=== PATIENT | female | born 1990 | race American Indian/Alaskan Native ===

== ENCOUNTER 2019-03-07 05:54 | Inpatient (IN) | payer SELFPAY ==
[2019-03-07] MEDS ORDERED: DUONEB *Not for PRN Use IH ONE ×2 (06:11→15:09)
[2019-03-07] MEDS ORDERED: NACL 0.9% 1000 ML 1,000 ML IV ONE (06:13)
--- NOTE | 2019-03-07 06:26 | XRay Report ---
PROCEDURE: XR CHEST 1V AP TECHNIQUE: Chest radiograph single view. HISTORY: DANYELLE x 1 day COMPARISONS: None . FINDINGS: Heart: Normal. Mediastinum/Vessels: Normal. Lungs/Pleural space: Normal. Bony thorax: No acute osseous abnormality. Life support devices: None. IMPRESSION: No acute cardiopulmonary abnormality. This document is electronically signed by Subhash Lopez MD., March 07 2019 06:24:19 AM ET
--- NOTE | 2019-03-07 06:55 | Emergency Department Report ---
ED General Adult HPI - General Chief complaint: Dyspnea/Respdistress Stated complaint: DIFFICULTY IN BREATHING Time Seen by Provider: 03/07/19 06:10 Source: patient, EMS Mode of arrival: Stretcher Limitations: No Limitations - History of Present Illness Initial comments: 28-year-old female transported to this facility on CPAP by EMS for exacerbation of asthma. Patient states that she has early been admitted this month to [facility] for an asthma exacerbation. She has just finished a course of steroids. She denies chest pain pressure or tightness-like pain or swelling. She's had no recent fever or chills. She denies any significant productive sputum. She states that her asthma just flared up last night. Patient denies previous intubation. She has had several hospitalizations. She is not at her baseline steroid dependent nor on home O2. -: Gradual, hour(s) Associated Symptoms: denies other symptoms - Related Data Allergies Allergy/AdvReac Type Severity Reaction Status Date / Time No Known Allergies Allergy Unverified 03/07/19 05:59 ED Review of Systems ROS: Stated complaint: DIFFICULTY IN BREATHING Other details as noted in HPI Constitutional: denies: chills, fever Eyes: denies: eye pain, eye discharge, vision change ENT: denies: ear pain, throat pain Respiratory: shortness of breath, wheezing. denies: cough Cardiovascular: denies: chest pain, palpitations Endocrine: no symptoms reported Gastrointestinal: denies: abdominal pain, nausea, diarrhea Genitourinary: denies: urgency, dysuria, discharge Musculoskeletal: denies: back pain, joint swelling, arthralgia Skin: denies: rash, lesions Neurological: denies: headache, weakness, paresthesias Psychiatric: denies: anxiety, depression Hematological/Lymphatic: denies: easy bleeding, easy bruising ED Past Medical Hx - Past Medical History Hx Asthma: Yes - Social History Smoking Status: Never Smoker ED Physical Exam - General Limitations: Physical Limitation (patient on BiPAP) General appearance: alert, in no apparent distress, other (no respiratory distress) - Head Head exam: Present: atraumatic, normocephalic - Eye Eye exam: Present: normal appearance - ENT ENT exam: Present: mucous membranes moist - Neck Neck exam: Present: normal inspection - Respiratory Respiratory exam: Present: accessory muscle use (mildly increased work of breathing), other (slight end expiratory wheeze). Absent: respiratory distress - Cardiovascular Cardiovascular Exam: Present: regular rate, normal rhythm. Absent: systolic murmur, diastolic murmur, rubs, gallop - GI/Abdominal GI/Abdominal exam: Present: soft, normal bowel sounds. Absent: distended, tenderness, guarding, rebound, rigid - Extremities Exam Extremities exam: Present: normal inspection, normal capillary refill. Absent: calf tenderness - Back Exam Back exam: Present: normal inspection - Neurological Exam Neurological exam: Present: alert, oriented X3, CN II-XII intact. Absent: motor sensory deficit - Psychiatric Psychiatric exam: Present: normal affect, normal mood - Skin Skin exam: Present: warm, dry, intact, normal color. Absent: rash ED Course Vital Signs 03/07/19 03/07/19 03/07/19 06:05 06:25 06:26 Temperature 98.5 F Pulse Rate 107 H 100 H Pulse Rate [ 97 H Bilateral] Respiratory 19 25 H Rate Respiratory 19 Rate [Bilateral ] Blood Pressure Blood Pressure 128/82 [Right] O2 Sat by Pulse 99 99 Oximetry 03/07/19 03/07/19 03/07/19 06:28 06:30 06:45 Temperature Pulse Rate 89 98 H 98 H Pulse Rate [ Bilateral] Respiratory 20 22 25 H Rate Respiratory Rate [Bilateral ] Blood Pressure 145/89 142/94 Blood Pressure [Right] O2 Sat by Pulse 100 100 99 Oximetry 03/07/19 03/07/19 03/07/19 06:46 07:16 07:54 Temperature Pulse Rate 100 H 99 H Pulse Rate [ 89 Bilateral] Respiratory 21 25 H Rate Respiratory 19 Rate [Bilateral ] Blood Pressure 114/44 120/61 Blood Pressure [Right] O2 Sat by Pulse 99 99 Oximetry 03/07/19 03/07/19 08:03 08:15 Temperature Pulse Rate Pulse Rate [ 96 H 98 H Bilateral] Respiratory Rate Respiratory 24 24 Rate [Bilateral ] Blood Pressure Blood Pressure [Right] O2 Sat by Pulse Oximetry - Reevaluation(s) Reevaluation #1: Continue BiPAP. Nebulized therapy. Patient started received steroids and magnesium in the field. She did not receive nebs. She will obtain a blood gas. She will be admitted to the hospitalist service. 03/07/19 06:55 Reevaluation #2: Discussed with hospitalist. Admit telemetry 03/07/19 08:41 ED Medical Decision Making - Lab Data Result diagrams: 03/07/19 06:28 03/07/19 06:28 Laboratory Results - last 24 hr 03/07/19 03/07/19 03/07/19 06:28 06:28 06:28 WBC 6.9 RBC 4.50 Hgb 12.5 Hct 38.1 MCV 85 MCH 28 MCHC 33 RDW 14.4 Plt Count 391 Lymph % (Auto) 38.5 H [place] % (Auto) 11.0 H Eos % (Auto) 6.4 H Baso % (Auto) 1.0 Lymph # 2.7 [place] # 0.8 Eos # 0.4 Baso # 0.1 Seg Neutrophils % 43.1 Seg Neutrophils # 3.0 PT 12.6 INR 0.97 APTT 26.1 POC ABG pH POC ABG pCO2 POC ABG pO2 POC ABG HCO3 POC ABG Total CO2 POC ABG O2 Sat POC ABG Base Excess FiO2 Sodium 138 Potassium 4.2 Chloride 101.4 Carbon Dioxide 20 L Anion Gap 21 BUN 16 Creatinine 0.6 L Estimated GFR > 60 BUN/Creatinine Ratio 27 Glucose 106 H Calcium 8.7 Total Bilirubin 0.50 Direct Bilirubin < 0.2 AST 14 ALT 24 Alkaline Phosphatase 72 Troponin T < 0.010 NT-Pro-B Natriuret Pep < 5 Total Protein 7.2 Albumin 3.8 L Albumin/Globulin Ratio 1.1 03/07/19 06:30 WBC RBC Hgb Hct MCV MCH MCHC RDW Plt Count Lymph % (Auto) [place] % (Auto) Eos % (Auto) Baso % (Auto) Lymph # [place] # Eos # Baso # Seg Neutrophils % Seg Neutrophils # PT INR APTT POC ABG pH 7.372 POC ABG pCO2 40.5 POC ABG pO2 135 H POC ABG HCO3 23.5 POC ABG Total CO2 25 POC ABG O2 Sat 99 POC ABG Base Excess -2 FiO2 40 Sodium Potassium Chloride Carbon Dioxide Anion Gap BUN Creatinine Estimated GFR BUN/Creatinine Ratio Glucose Calcium Total Bilirubin Direct Bilirubin AST ALT Alkaline Phosphatase Troponin T NT-Pro-B Natriuret Pep Total Protein Albumin Albumin/Globulin Ratio Critical Care Time: Yes Critical care time in (mins) excluding proc time.: 60 Critical care attestation.: If time is entered above; I have spent that time in minutes in the direct care of this critically ill patient, excluding procedure time. ED Disposition Clinical Impression: Status asthmaticus Qualifiers: Asthma severity: moderate Asthma persistence: persistent Qualified Code(s): J45.42 - Moderate persistent asthma with status asthmaticus Disposition: -09 OP ADMIT IP TO THIS HOSP Is pt being admited?: Yes Does the pt Need Aspirin: No Condition: Stable Time of Disposition: 08:42
[2019-03-07 06:57] LABS: Basophils # (Auto) 0.1 K/mm3 (0.0-0.1); Eosinophils # (Auto) 0.4 K/mm3 (0.0-0.4); Eosinophils % (Auto) 6.4 % (0.0-4.3); Hematocrit 38.1 % (30.3-42.9); Hemoglobin 12.5 gm/dl (10.1-14.3); Lymphocytes # (Auto) 2.7 K/mm3 (1.2-5.4); Lymphocytes % (Auto) 38.5 % (13.4-35.0); Mean Corpuscular HGB Conc 33 % (30-34); Mean Corpuscular Volume 85 fl (79-97); Monocytes # (Auto) 0.8 K/mm3 (0.0-0.8); Platelet Count 391 K/mm3 (140-440); Red Cell Distribution Width 14.4 % (13.2-15.2)
[2019-03-07 07:04] LABS: INR 0.97 (0.87-1.13); Partial Thromboplastin Time 26.1 Sec. (24.2-36.6)
[2019-03-07 07:17] LABS: Alanine Aminotransferase 24 units/L (7-56); Albumin 3.8 g/dL (3.9-5); BUN/Creatinine Ratio 27; Blood Urea Nitrogen 16 mg/dL (7-17); Calcium 8.7 mg/dL (8.4-10.2); Hemolysis Index 29
[2019-03-07 07:39] LABS: Bilirubin,Direct < 0.2 mg/dL (0-0.2)
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
[2019-03-07] MEDS ORDERED: PROAIR IH PRN (13:58)
[2019-03-07 14:00] LABS: Bacteria,Urine 1+ /HPF (Negative); Bilirubin,Urine NEG (Negative); Blood,Urine NEG (Negative); Color,Urine Yellow (Yellow); HCG Qualitative,Urine Negative (Negative); Mucus,Urine 1+ /HPF; Protein,Urine <15 mg/dL mg/dL (Negative); Urobilinogen,Urine < 2.0 mg/dL (<2.0)
[2019-03-07 14:09] LABS: Amphetamine Screen,Urine PRESUMPTIVE NEGATIVE; Benzodiazepines Screen,Urine PRESUMPTIVE NEGATIVE; Cocaine Screen,Urine PRESUMPTIVE NEGATIVE; Methadone Screen,Urine PRESUMPTIVE NEGATIVE; Opiate Screen,Urine PRESUMPTIVE NEGATIVE
[2019-03-07] MEDS ORDERED: PROVENTIL IH PRN (14:09)
[2019-03-07 14:26] LABS: Cannabinoid Screen,Urine PRESUMPTIVE POSITIVE
[2019-03-07] MEDS: DUONEB *Not for PRN Use IH SCH ×2 (15:07→19:45)
[2019-03-07] MEDS: SOLU-Medrol IV SCH ×2 (15:35→21:36)
[2019-03-07] MEDS ORDERED: PROVENTIL IH SCH (16:00)
[2019-03-07] MEDS ORDERED: SOLU-Medrol ONE (16:01)
[2019-03-08] MEDS: SOLU-Medrol IV SCH ×3 (05:23→21:11)
--- NOTE | 2019-03-08 07:36 | Progress Note ---
Assessment and Plan Assessment and plan: --Acute exacerbation of bronchial last; oxygen BiPAP as needed, nebulizers, IV steroids, inhalation steroids Supportive care --Acute bronchitis; bronchodilators IV antibiotics, cough medicine --Acute on chronic hypoxic respiratory failure Requiring BiPAP, continue oxygen titers were processed within 90% BiPAP as needed, patient home oxygen dependent --Urinary Tract infection; empiric antibiotics Follow cultures --Morbid obesity; BMI 55.0 Advised weight reduction and medically stable --Recreational drug use; marijuana use Advised to quit --DVT Prophylaxis: Lovenox Closely monitor the patient and adjust management as needed Possible discharge tomorrow if stable Plan of care is reviewed with the patient and her nurse History Interval history: Patient seen and examined medical The patient feels slightly better still has mild wheezing And shortness of breath, alert awake oriented 3 Vital signs noted Hospitalist Physical - Constitutional Vitals: Temp Pulse Resp BP Pulse Ox 98.0 F 21 L 21 118/58 95 03/08/19 05:32 03/08/19 05:32 03/08/19 05:32 03/08/19 05:32 03/08/19 05:32 General appearance: Present: no acute distress, well-nourished, obese (morbidly obese) - EENT Eyes: Present: PERRL, EOM intact - Neck Neck: Present: supple, normal ROM - Respiratory Respiratory effort: normal Respiratory: bilateral: diminished, wheezing, negative: rales, rhonchi - Cardiovascular Rhythm: regular Heart Sounds: Present: S1 & S2 - Extremities Extremities: no ischemia, No edema - Abdominal General gastrointestinal: soft, non-tender, non-distended, normal bowel sounds - Integumentary Integumentary: Present: clear, warm - Psychiatric Psychiatric: appropriate mood/affect, cooperative - Neurologic Neurologic: CNII-XII intact, moves all extremities Results - Labs CBC & Chem 7: 03/07/19 06:28 03/07/19 06:28 Labs: Laboratory Last Values WBC 6.9 K/mm3 (4.5-11.0) 03/07/19 06:28 RBC 4.50 M/mm3 (3.65-5.03) 03/07/19 06:28 Hgb 12.5 gm/dl (10.1-14.3) 03/07/19 06:28 Hct 38.1 % (30.3-42.9) 03/07/19 06:28 MCV 85 fl (79-97) 03/07/19 06:28 MCH 28 pg (28-32) 03/07/19 06:28 MCHC 33 % (30-34) 03/07/19 06:28 RDW 14.4 % (13.2-15.2) 03/07/19 06:28 Plt Count 391 K/mm3 (140-440) 03/07/19 06:28 Lymph % (Auto) 38.5 % (13.4-35.0) H 03/07/19 06:28 Page % (Auto) 11.0 % (0.0-7.3) H 03/07/19 06:28 Eos % (Auto) 6.4 % (0.0-4.3) H 03/07/19 06:28 Baso % (Auto) 1.0 % (0.0-1.8) 03/07/19 06:28 Lymph # 2.7 K/mm3 (1.2-5.4) 03/07/19 06:28 Page # 0.8 K/mm3 (0.0-0.8) 03/07/19 06:28 Eos # 0.4 K/mm3 (0.0-0.4) 03/07/19 06:28 Baso # 0.1 K/mm3 (0.0-0.1) 03/07/19 06:28 Seg Neutrophils % 43.1 % (40.0-70.0) 03/07/19 06:28 Seg Neutrophils # 3.0 K/mm3 (1.8-7.7) 03/07/19 06:28 PT 12.6 Sec. (12.2-14.9) 03/07/19 06:28 INR 0.97 (0.87-1.13) 03/07/19 06:28 APTT 26.1 Sec. (24.2-36.6) 03/07/19 06:28 POC ABG pH 7.372 (7.35-7.45) 03/07/19 06:30 POC ABG pCO2 40.5 (35-45) 03/07/19 06:30 POC ABG pO2 135 (80-105) H 03/07/19 06:30 POC ABG HCO3 23.5 (22-26 mml/L) 03/07/19 06:30 POC ABG Total CO2 25 (23-27mmol/L) 03/07/19 06:30 POC ABG O2 Sat 99 03/07/19 06:30 POC ABG Base Excess -2 ((-2) - (+3)mmol/L) 03/07/19 06:30 40 % 03/07/19 06:30 Sodium 138 mmol/L (137-145) 03/07/19 06:28 Potassium 4.2 mmol/L (3.6-5.0) 03/07/19 06:28 Chloride 101.4 mmol/L (98-107) 03/07/19 06:28 Carbon Dioxide 20 mmol/L (22-30) L 03/07/19 06:28 21 mmol/L 03/07/19 06:28 BUN 16 mg/dL (7-17) 03/07/19 06:28 0.6 mg/dL (0.7-1.2) L 03/07/19 06:28 Estimated GFR > 60 ml/min 03/07/19 06:28 27 % 03/07/19 06:28 Glucose 106 mg/dL (65-100) H 03/07/19 06:28 Calcium 8.7 mg/dL (8.4-10.2) 03/07/19 06:28 0.50 mg/dL (0.1-1.2) 03/07/19 06:28 < 0.2 mg/dL (0-0.2) 03/07/19 06:28 AST 14 units/L (5-40) 03/07/19 06:28 ALT 24 units/L (7-56) 03/07/19 06:28 72 units/L (35-129) 03/07/19 06:28 < 0.010 ng/mL (0.00-0.029) 03/07/19 06:28 NT-Pro-B Natriuret Pep < 5 pg/mL (0-450) 03/07/19 06:28 7.2 g/dL (6.3-8.2) 03/07/19 06:28 3.8 g/dL (3.9-5) L 03/07/19 06:28 1.1 % 03/07/19 06:28 Yellow (Yellow) 03/07/19 13:48 Cloudy (Clear) 03/07/19 13:48 7.0 (5.0-7.0) 03/07/19 13:48 Ur Specific [place] 1.023 (1.003-1.030) 03/07/19 13:48 <15 mg/dl mg/dL (Negative) 03/07/19 13:48 Neg mg/dL (Negative) 03/07/19 13:48 Neg mg/dL (Negative) 03/07/19 13:48 Neg (Negative) 03/07/19 13:48 Neg (Negative) 03/07/19 13:48 Neg (Negative) 03/07/19 13:48 < 2.0 mg/dL (<2.0) 03/07/19 13:48 Ur Leukocyte Esterase Mod (Negative) 03/07/19 13:48 29.0 /HPF (0.0-6.0) H 03/07/19 13:48 9.0 /HPF (0.0-6.0) 03/07/19 13:48 U Epithel Cells (Auto) 26.0 /HPF (0-13.0) H 03/07/19 13:48 1+ /HPF (Negative) 03/07/19 13:48 1+ /HPF 03/07/19 13:48 Few /HPF 03/07/19 13:48 Urine HCG, Qual Negative (Negative) 03/07/19 13:48 Presumptive negative 03/07/19 13:48 Presumptive negative 03/07/19 13:48 Ur Barbiturates Screen Presumptive negative 03/07/19 13:48 Ur Phencyclidine Scrn Presumptive negative 03/07/19 13:48 Ur Amphetamines Screen Presumptive negative 03/07/19 13:48 U Benzodiazepines Scrn Presumptive negative 03/07/19 13:48 Presumptive negative 03/07/19 13:48 U Marijuana (THC) Screen Presumptive positive 03/07/19 13:48 Disclamer 03/07/19 13:48 Active Medications - Current Medications Current Medications: Generic Name Dose Route Start Last Admin Trade Name Freq PRN Reason Stop Dose Admin Albuterol 2.5 mg 03/07/19 14:09 03/08/19 00:16 Proventil IH 2.5 mg Q6HRT PRN Administration Shortness Of Breath Albuterol/Ipratropium 1 ampul 03/07/19 16:00 03/07/19 19:45 Duoneb *Not For Prn Use* IH 1 ampul QIDRT [place] Administration Budesonide 0.5 mg/ 0 mg 03/07/19 20:00 Arformoterol Tartrate 15 mcg IH Q12HRT [place] Enoxaparin Sodium 40 mg 03/08/19 10:00 Lovenox SUB-Q QDAY [facility] Levofloxacin/Dextrose 750 mg in 150 mls @ 100 mls/hr 03/08/19 10:00 Levaquin 750mg/150ml IV Q24HR [facility] Protocol Methylprednisolone Sodium Succinate 60 mg 03/07/19 14:00 03/08/19 05:23 Solu-Medrol IV 60 mg Q8HR [place] Administration
[2019-03-08] MEDS: DUONEB *Not for PRN Use IH SCH ×4 (09:35→20:42)
[2019-03-08] MEDS: LEVAQUIN 750MG/150ML 750 MG/150 ML BAG IV SCH (09:49)
[2019-03-08] MEDS: PULMICORT 0.5 MG, BROVANA NEBU 15 MCG IH SCH ×2 (09:49→12:35)
[2019-03-08] MEDS: LOVENOX SUB-Q SCH (09:50)
[2019-03-09] MEDS: SOLU-Medrol IV SCH (05:18)
[2019-03-09] MEDS: DUONEB *Not for PRN Use IH SCH ×2 (07:54→13:20)
[2019-03-09] MEDS: LOVENOX SUB-Q SCH (09:56)
[2019-03-09] MEDS: LEVAQUIN 750MG/150ML 750 MG/150 ML BAG IV SCH (09:56)
--- NOTE | 2019-03-09 13:29 | Discharge Summary ---
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 Patient was recently admitted to [facility] for asthma exacerbation managed with antibiotics and nebulizers and steroids, patient denies any fever no chest pain but has shortness of breath and worsening wheeze Denies nausea vomiting or abdominal Denies fever, denies chest pain or palpitations. Admitted and managed with o2,nebs,steroids and antibiotics Symptomd slowly but gradually improved,advised weight reduction when medically stable. Also advised to quit recreational drug use. Today patient is comfortable,no new complaints,vital signs stable Physical exam is stable at discharge. Discharge Diagnosis: --Acute exacerbation of bronchial last; oxygen BiPAP as needed, nebulizers, IV steroids, inhalation steroids Supportive care --Acute bronchitis; bronchodilators IV antibiotics, cough medicine --Acute on chronic hypoxic respiratory failure Requiring BiPAP, continue oxygen titers were processed within 90% BiPAP as needed, patient home oxygen dependent --Urinary Tract infection; empiric antibiotics Follow cultures --Morbid obesity; BMI 55.0 Advised weight reduction and medically stable --Recreational drug use; marijuana use Advised to quit --DVT Prophylaxis: Lovenox Disposition: TO HOME OR SELFCARE Time spent for discharge: 32 min Core Measure Documentation - Palliative Care Palliative Care/ Comfort Measures: Not Applicable - Core Measures Any of the following diagnoses?: none Exam - Constitutional Vitals: Temp Pulse Resp BP Pulse Ox 98.1 F 85 18 130/75 96 03/09/19 06:21 03/09/19 13:20 03/09/19 13:20 03/09/19 06:21 03/09/19 06:21 General appearance: Present: no acute distress, well-nourished, obese - EENT Eyes: Present: PERRL, EOM intact - Neck Neck: Present: supple, normal ROM - Respiratory Respiratory effort: normal Respiratory: bilateral: diminished, negative: rales, rhonchi, wheezing - Cardiovascular Rhythm: regular Heart Sounds: Present: S1 & S2 - Extremities Extremities: no ischemia, No edema - Abdominal General gastrointestinal: Present: soft, non-tender, non-distended, normal bowel sounds - Integumentary Integumentary: Present: clear, warm - Musculoskeletal Musculoskeletal: strength equal bilaterally, generalized weakness - Psychiatric Psychiatric: appropriate mood/affect, cooperative - Neurologic Neurologic: moves all extremities Plan Activity: no restrictions Diet: regular Additional Instructions: RA resting and ambulatory O2 sats > 95% no need for home oxygen Follow up with: DESTINEE NIEVES MD [Primary Care Provider] - 7 Days Forms: Work/School Release Form Prescriptions: predniSONE [Deltasone] 10 mg PO DAILY #20 tablet cephALEXin [Keflex] 500 mg PO Q6H #20 cap Proventil Hfa 2 puff .ROUTE TID PRN #1 PRN Reason: Shortness Of Breath
[2019-03-09 14:28] VITALS: BP 124/71
== END 2019-03-09 15:30 | disposition home or self-care (01) | DRG 189 ==
LOC: ED 05:54 → 4A 10:04 → 3A 15:42
PROVIDERS: ADMIT Internal Medicine; ATTEND Internal Medicine
PROC: 4A033R1 Measurement of Arterial Saturation, Peripheral, Percutaneous Approach (ICD-10-PCS; principal; 2019-03-07)
DX: J96.21 Acute and chronic respiratory failure with hypoxia (principal); Z68.43 Body mass index [BMI] 50.0-59.9, adult; N39.0 Urinary tract infection, site not specified; J45.42 Moderate persistent asthma with status asthmaticus; E66.01 Morbid (severe) obesity due to excess calories; J20.9 Acute bronchitis, unspecified; Z82.49 Family history of ischemic heart disease and other diseases of the circulatory system; Z82.5 Family history of asthma and other chronic lower respiratory diseases
CPT/HCPCS: 36415; 71045; 80048; 80076; 80307; 81001; 81025; 82803; 83880; 84484; 85025; 85610; 85730; 87086; 93005; 93010; 94640; 94660; G0378; J1650; J1956; J2930; J7030

== ENCOUNTER 2021-08-24 16:00 | Outpatient (CLI) | payer MEDICAID ==
[2021-08-24 17:39] VITALS: BP 119/59
[2021-08-24] MEDS ORDERED: LACTATED RINGERS 500 ML IV ONE (18:20)
[2021-08-24] MEDS ORDERED: LIDOCAINE-MPF (1%) 10 MG/1 ML VIAL 5 ML INFILTRATI ONE (19:02)
[2021-08-24 19:10] LABS: Bilirubin,Urine NEG (Negative); Blood,Urine NEG (Negative); Color,Urine Yellow (Yellow); Mucus,Urine 3+ /HPF; Protein,Urine <15 mg/dL mg/dL (Negative); Urobilinogen,Urine < 2.0 mg/dL (<2.0)
== END 2021-08-24 19:50 | disposition home or self-care (01) ==
LOC: TRG 16:00 → APU 16:01 → TRG 19:50
PROVIDERS: ATTEND Obstetrics & Gynecology
DX: O26.892 Other specified pregnancy related conditions, second trimester (principal); R10.2 Pelvic and perineal pain; O99.512 Diseases of the respiratory system complicating pregnancy, second trimester; J45.909 Unspecified asthma, uncomplicated; Z79.51 Long term (current) use of inhaled steroids; Z3A.24 24 weeks gestation of pregnancy
CPT/HCPCS: 59025; 81001; 96372; J0696; J3490